=== PATIENT | male | born 1990 | race African-American/Black ===

== ENCOUNTER 2018-01-15 16:32 | Emergency (ER) | payer BC ==
[2018-01-15] MEDS ORDERED: CYCLOBENZAPRINE 10 MG TAB ONE (18:44)
[2018-01-15] MEDS ORDERED: HYDROCODONE/APAP 5/325 MG TAB ONE (18:45)
--- NOTE | 2018-01-15 18:46 | EDPHYS ---
Physician Documentation [facility] Name: Spencer Castaneda Age: 27 yrs Sex: Male : 1990 Arrival Date: 01/15/2018 Time: 16:34 Bed 24 Private MD: None, None ED Physician Ravi Astudillo HPI: 01/15 18:34 This 27 yrs old Black Male presents to ER via Ambulatory with complaints of Joint pain. pm1 18:34 patient with a history of juvenile rheumatoid arthritis. Patient reports increase in pm1 pain yesterday. Patient with chronic pain and reports that last time he had a flare up was 3 years ago. 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 Onset: The symptoms/episode began/occurred Chronic. Severity of symptoms: in the emergency department the symptoms are worse. The patient has experienced similar episodes in the past, chronically. The patient has not recently seen a physician. Historical: - Allergies: 17:10 No Known Allergies; ae1 - Home Meds: 17:10 None [Active]; ae1 - PMHx: 17:10 Rheumatoid Arthritis; ae1 - PSHx: 17:10 Tonsillectomy; ae1 - Immunization history:: Flu vaccine is not up to date. - Social history:: Smoking status: Patient uses tobacco products, denies chronic smoking, but will smoke occasionally. - Ebola Screening: : Patient negative for fever greater than or equal to 101.5 degrees Fahrenheit, and additional compatible Ebola Virus Disease symptoms Patient denies exposure to infectious person. ROS: 18:50 Constitutional: Negative for fever, chills, and weight loss, Eyes: Negative for injury, pm1 pain, redness, and discharge, ENT: Negative for injury, pain, and discharge, Neck: Negative for injury, pain, and swelling, Cardiovascular: Negative for chest pain, palpitations, and edema, Respiratory: Negative for shortness of breath, cough, wheezing, and pleuritic chest pain, Abdomen/GI: Negative for abdominal pain, nausea, vomiting, diarrhea, and constipation, Back: Negative for injury and pain. 18:50 Skin: Negative for injury, rash, and discoloration, Neuro: Negative for headache, weakness, numbness, tingling, and seizure. 18:50 MS/extremity: Positive for joint pain to right shoulder, right hip, and right knee, Negative for decreased range of motion. Exam: 18:50 Constitutional: This is a well developed, well nourished patient who is awake, alert, pm1 and in no acute distress. Head/Face: Normocephalic, atraumatic. Eyes: Pupils equal round and reactive to light, extra-ocular motions intact. Lids and lashes normal. Conjunctiva and sclera are non-icteric and not injected. Cornea within normal limits. Periorbital areas with no swelling, redness, or edema. ENT: Nares patent. No nasal discharge, no septal abnormalities noted. Tympanic membranes are normal and external auditory canals are clear. Oropharynx with no redness, swelling, or masses, exudates, or evidence of obstruction, uvula midline. Mucous membranes moist. Neck: Trachea midline, no thyromegaly or masses palpated, and no cervical lymphadenopathy. Supple, full range of motion without nuchal rigidity, or vertebral point tenderness. No Meningismus. Chest/axilla: Normal chest wall appearance and motion. Nontender with no deformity. No lesions are appreciated. Cardiovascular: Regular rate and rhythm with a normal S1 and S2. No gallops, murmurs, or rubs. Normal PMI, no JVD. No pulse deficits. Respiratory: Lungs have equal breath sounds bilaterally, clear to auscultation and percussion. No rales, rhonchi or wheezes noted. No increased work of breathing, no retractions or nasal flaring. Abdomen/GI: Soft, non-tender, with normal bowel sounds. No distension or tympany. No guarding or rebound. No evidence of tenderness throughout. Back: No spinal tenderness. No costovertebral tenderness. Full range of motion. Skin: Warm, dry with normal turgor. Normal color with no rashes, no lesions, and no evidence of cellulitis. MS/ Extremity: Pulses equal, no cyanosis. Neurovascular intact. Full, normal range of motion. Neuro: Awake and alert, GCS 15, oriented to person, place, time, and situation. Cranial nerves II-XII grossly intact. Motor strength 5/5 in all extremities. Sensory grossly intact. Cerebellar exam normal. Normal gait. Vital Signs: 17:06 BP 138 / 85; Pulse 94; Resp 17; Temp 97.5(O); Pulse Ox 99% on R/A; Weight 64.41 kg (R); ae1 Pain 9/10; 18:13 BP 136 / 96; Pulse 86; Resp 18; Pulse Ox 99% ; tl3 19:10 BP 138 / 89; Pulse 69; Resp 18; Pulse Ox 99% on R/A; tl3 MDM: 18:32 Patient medically screened. pm1 18:41 Data reviewed: vital signs. Data interpreted: Pulse oximetry: on room air is 99 %. pm1 Interpretation: normal. Counseling: I had a detailed discussion with the patient and/or guardian regarding: the historical points, exam findings, and any diagnostic results supporting the discharge/admit diagnosis, the need for outpatient follow up, for definitive care, a auto adjudication specialist, to return to the emergency department if symptoms worsen or persist or if there are any questions or concerns that arise at home. Administered Medications: 18:44 Drug: Flexeril 10 mg Route: PO; tl3 19:11 Follow up: Response: Medication administered at discharge. tl3 18:45 Drug: [place] 5 mg-325 mg 1 tabs Route: PO; tl3 19:11 Follow up: Response: Medication administered at discharge. tl3 Disposition: 01/15/18 18:45 Discharged to Home. Impression: Pain in unspecified joint - arthritis right shoulder, right hip, right knee. - Condition is Stable. - Discharge Instructions: Arthralgia, Arthritis, Nonspecific. - Prescriptions for Cyclobenzaprine 10 mg Oral Tablet - take 1 tablet by ORAL route every 8 hours As needed; 30 tablet. Tylenol- Codeine #3 300-30 mg Oral Tablet - take 2 tablets by ORAL route every 6 hours As needed; 20 tablet. - Medication Reconciliation Form, Thank You Letter, Prescription Opioid Use form. - Follow up: Emergency Department; When: As needed; Reason: Worsening of condition. Follow up: Private Physician; When: 2 - 3 days; Reason: Recheck today's complaints, Continuance of care, Re-evaluation by your physician. - Problem is new. - Symptoms have improved. Addendum: 01/24/2018 11:50 Co-signature as Attending Physician, Ravi Astudillo MD Available for consultation at p s1 all times. . Signatures: Stanley Landaverde, TITLE MANAGER TITLE MANAGER pm1 Neal Virgen RN RN ae1 Ravi Astudillo MD MD ps1 Meghan Magana, RN RN tl3 Corrections: (The following items were deleted from the chart) 01/15 19:13 18:45 01/15/2018 18:45 Discharged to Home. Impression: Pain in unspecified joint - tl3 arthritis right shoulder, right hip, right knee. Condition is Stable. Forms are Medication Reconciliation Form, Thank You Letter, Antibiotic Education, Prescription Opioid Use. Follow up: Emergency Department; When: As needed; Reason: Worsening of condition. Follow up: Private Physician; When: 2 - 3 days; Reason: Recheck today's complaints, Continuance of care, Re-evaluation by your physician. Problem is new. Symptoms have improved. pm1
--- NOTE | 2018-01-15 18:46 | ER ---
Nurse's Notes [facility] Name: Spencer Castaneda Age: 27 yrs Sex: Male : 1990 Arrival Date: 01/15/2018 Time: 16:34 Bed 24 Private MD: None, None Diagnosis: Pain in unspecified joint-arthritis right shoulder, right hip, right knee Presentation: 01/15 17:08 Presenting complaint: Patient states: Patient states his "arthritis" pain is unbearable ae1 , states he was dx at the age of [age]. reports worst pain is in his right pain and YOSI shoulders. Denies injury. Transition of care: patient was not received from another setting of care. Onset of symptoms was January 14, 2018. Risk Assessment: Do you want to hurt yourself or someone else? Patient reports no desire to harm self or others. Initial Sepsis Screen: Does the patient meet any 2 criteria? No. Patient's initial sepsis screen is negative. Does the patient have a suspected source of infection? No. Patient's initial sepsis screen is negative. 17:08 Method Of Arrival: Ambulatory ae1 17:08 Acuity: BREONNA 4 ae1 19:13 Care prior to arrival: None. tl3 Triage Assessment: 17:11 General: Appears in no apparent distress. uncomfortable, Behavior is calm, cooperative. ae1 Pain: Complains of pain in anterior aspect of left shoulder and posterior aspect of left shoulder. Neuro: Level of Consciousness is awake, alert, obeys commands, Oriented to person, place, time, situation. Respiratory: Airway is patent Respiratory effort is even, unlabored. Historical: - Allergies: 17:10 No Known Allergies; ae1 - Home Meds: 17:10 None [Active]; ae1 - PMHx: 17:10 Rheumatoid Arthritis; ae1 - PSHx: 17:10 Tonsillectomy; ae1 - Immunization history:: Flu vaccine is not up to date. - Social history:: Smoking status: Patient uses tobacco products, denies chronic smoking, but will smoke occasionally. - Ebola Screening: : Patient negative for fever greater than or equal to 101.5 degrees Fahrenheit, and additional compatible Ebola Virus Disease symptoms Patient denies exposure to infectious person. Screenin:13 Abuse screen: Denies threats or abuse. Nutritional screening: No deficits noted. tl3 Tuberculosis screening: No symptoms or risk factors identified. Fall Risk None identified. Assessment: 18:13 General: Appears slender, well groomed, well developed, well nourished, Behavior is tl3 calm, cooperative, appropriate for age. Pain: Complains of pain in posterior aspect of right shoulder and anterior aspect of right shoulder and left arm and right arm and posterior aspect of left shoulder and anterior aspect of left shoulder and pelvis and right hip. Neuro: Level of Consciousness is awake, alert, obeys commands, Oriented to person, place, time, situation, Appropriate for age. Cardiovascular: Heart tones S1 S2 present Patient's skin is warm and dry. Respiratory: Airway is patent Respiratory effort is even, unlabored, Respiratory pattern is regular, symmetrical. GI: No signs and/or symptoms were reported involving the gastrointestinal system. : No signs and/or symptoms were reported regarding the genitourinary system. EENT: No signs and/or symptoms were reported regarding the EENT system. Derm: No signs and/or symptoms reported regarding the dermatologic system. Musculoskeletal: Reports pain in posterior aspect of right shoulder and anterior aspect of right shoulder and left arm and right arm and posterior aspect of left shoulder and anterior aspect of left shoulder and pelvis and right hip pt using OTC meds for arthritic pain, not sufficient any longer, no PCP. 19:10 Reassessment: Patient appears in no apparent distress at this time. No changes from tl3 previously documented assessment. Patient and/or family updated on plan of care and expected duration. Pain level reassessed. Patient is alert, oriented x 3, equal unlabored respirations, skin warm/dry/pink. Vital Signs: 17:06 BP 138 / 85; Pulse 94; Resp 17; Temp 97.5(O); Pulse Ox 99% on R/A; Weight 64.41 kg (R); ae1 Pain 9/10; 18:13 BP 136 / 96; Pulse 86; Resp 18; Pulse Ox 99% ; tl3 19:10 BP 138 / 89; Pulse 69; Resp 18; Pulse Ox 99% on R/A; tl3 ED Course: 16:34 Patient arrived in ED. mr 16:35 None, None is Private Physician. mr 17:10 Triage completed. ae1 17:11 Arm band placed on left wrist. ae1 17:59 Meghan Magana, RN is Primary Nurse. tl3 17:59 Stanley Landaverde, BHARGAV is PHCP. pm1 17:59 Ravi Astudillo MD is Attending Physician. pm1 18:13 Patient has correct armband on for positive identification. Bed in low position. Call tl3 light in reach. Side rails up X 1. Adult w/ patient. Pulse ox on. NIBP on. 18:13 No provider procedures requiring assistance completed. tl3 19:10 Patient did not have IV access during this emergency room visit. tl3 Administered Medications: 18:44 Drug: Flexeril 10 mg Route: PO; tl3 19:11 Follow up: Response: Medication administered at discharge. tl3 18:45 Drug: [place] 5 mg-325 mg 1 tabs Route: PO; tl3 19:11 Follow up: Response: Medication administered at discharge. tl3 Outcome: 18:45 Discharge ordered by . pm1 19:10 Discharged to home ambulatory. tl3 19:10 Condition: stable 19:10 Discharge instructions given to patient, Instructed on discharge instructions, medication usage, Demonstrated understanding of instructions, follow-up care, medications, Prescriptions given X 2. 19:13 Patient left the ED. tl3 Signatures: Ellen Simms mr LandaverdeStanley, BHARGAV DIRECTOR OF PUPIL PERSONNEL PROGRAM pm1 Neal Virgen RN RN ae1 Meghan Magana, EDWIN RN tl3
== END 2018-01-15 19:13 | disposition home or self-care (01) ==
LOC: ER 16:32
DX: M19.011 Primary osteoarthritis, right shoulder (principal); M16.11 Unilateral primary osteoarthritis, right hip; M17.11 Unilateral primary osteoarthritis, right knee; Z72.0 Tobacco use
CPT/HCPCS: 99283